=== PATIENT | female | born 1965 | race Caucasian/White ===

== ENCOUNTER → 2021-11-17 | Day surgery (SDC) | payer OTHER | END | disposition home or self-care (01) | LOC: FRADUS-SUR 09:54 → EDSTATUS 10:30 | PROVIDERS: ATTEND Obstetrics & Gynecology | PROC: 0HBT3ZX Excision of Right Breast, Percutaneous Approach, Diagnostic (ICD-10-PCS; principal; 2021-11-17) | DX: N64.89 Other specified disorders of breast (principal); N60.11 Diffuse cystic mastopathy of right breast | CPT/HCPCS: 19083; 77065-TC; 87899; 88305-TC; A4648 ==